=== PATIENT | female | born 1985 | race Caucasian/White ===

== ENCOUNTER 2019-09-24 01:23 | Outpatient (CLI) | payer OTHER, SELFPAY ==
--- NOTE | 2019-09-24 11:09 | DI.US_ITS ---
EXAM: US SOFT TISS ABD WALL/LOW BACK CLINICAL HISTORY: SUBCUTANEOUS MASS OF BACK, R22.2, LT UPPER BACK/BASE OF NECK IN TRAPEZIUS TECHNIQUE: Ultrasound performed using standard protocol. COMPARISON: OB US 2-3 TRIMESTER TRANSABD*P from 09/21/2017 FINDINGS: Ultrasound examination was performed to evaluate question of palpable mass of the superior thoracic/l ower cervical region to the left of midline. Ultrasound shows a 31 x 34 x 5 millimeter in diameter i soechoic to hypoechoic mass which is homogeneous in appearance and avascular. The findings are sugge stive of lipoma although other etiologies are not excluded. IMPRESSION: Probable lipoma as described above. If there is continued growth additional evaluation with CT or MR could be obtained to confirm this diagnosis.
== END 2019-09-24 01:43 ==
PROVIDERS: PCP Nurse Practitioner Family; Visit Provider Nurse Practitioner Family
DX: R22.2 Localized swelling, mass and lump, trunk (principal); D17.39 Benign lipomatous neoplasm of skin and subcutaneous tissue of other sites
CPT/HCPCS: 76705

== ENCOUNTER 2021-03-18 14:08 | Outpatient (REF) | payer OTHER, SELFPAY ==
--- NOTE | 2021-03-18 13:40 | PAPFT_PTH ---
PATIENT: Larisa Rodríguez LOC: [facility] U#:[id number] AGE/SX: 36/F ROOM: RE03/18/[address]: RAJWINDER Veloz : 1985 BED: DIS: 03/18/2021 SPEC #: [id number] RECD: 03/18/21 17:55 STATUS: KHRIS REEmery #: [id number] MELCHOR: 03/18/21 13:[address]: Carolynn Butler DEPT: [facility] Cytology RECD BY: Emily Jj ENTERED: 03/18/21 17:55 SP TYPE: PAPFT OTHR DR: Kevin Robertson Tissues: 1 - CX/ENDOCX FOR PAP SMEARS Procedures: PAP THIN PREP/UVM Screening HPV DNA PROBE Comments: [id number]
== END 2021-03-18 14:09 | disposition home or self-care (01) ==
LOC: LBN 14:08
PROVIDERS: PCP Nurse Practitioner Family; Visit Provider Nurse Practitioner Family
DX: Z12.4 Encounter for screening for malignant neoplasm of cervix (principal); Z11.51 Encounter for screening for human papillomavirus (HPV)
CPT/HCPCS: 88142; 87624

== ENCOUNTER 2021-04-15 18:51 | Outpatient (REF) | payer OTHER, SELFPAY ==
[2021-04-15 19:15] LABS: Anion Gap 7.8 mmol/L (3-11); BUN 17 mg/dL (7-18); CO2 28.2 mmol/L (21.0-32.0); CREATININE 0.9 mg/dL (0.55-1.02); Calculated LDL 181 mg/dL (<100); Chloride 105 mmol/L (98-107); Cholesterol 246 mg/dL (<200); Glucose 106 mg/dL (74-106); HDL Cholesterol 45 mg/dL (40-60); Potassium 4.6 mmol/L (3.5-5.1); Sodium 141 mmol/L (136-145); Triglyceride 104 mg/dL (<150)
== END 2021-04-15 18:52 | disposition home or self-care (01) ==
LOC: NCHCN 18:51
PROVIDERS: PCP Nurse Practitioner Family; Visit Provider Physician Assistant
DX: Z00.00 Encounter for general adult medical examination without abnormal findings (principal)
CPT/HCPCS: 80048; 80061

== ENCOUNTER 2021-07-07 03:03 | Outpatient (CLI) | payer OTHER, SELFPAY ==
--- NOTE | 2021-07-07 09:10 | DI.RAD_ITS ---
Exam(s) RF BARIUM SWALLOW EXAM: RF BARIUM SWALLOW CLINICAL HISTORY: GLOBUS HYSTERICUS, F45.8 TECHNIQUE: 2D and realtime digital imaging was performed. CONTRAST MATERIAL: Oral barium Oral water soluble contrast was administered. COMPARISON: No exams were available for comparison FINDINGS: Esophagram was performed both standing and recumbent BRIDGES, using single and air contrast technique. The swallowing mechanism appears grossly intact. No evidence of penetration or aspiration. No evidenc e of hypertense upper esophageal sphincter. No evidence of Zenker's diverticulum. There are no fixed lesions in the esophagus. No hiatal hernia. No diverticuli. No Schatzki ring. GE junction appears unr emarkable and no reflux demonstrated. IMPRESSION: No significant findings on this esophagram study. RADIATION DOSE DELIVERED: lamine Hatch=46.5 mGy
[2021-07-07] MEDS: Barium Sulfate 60% W/V 355 ML BTL PO (10:10)
== END 2021-07-07 03:23 ==
PROVIDERS: PCP Nurse Practitioner Family; Visit Provider Physician Assistant
DX: F45.8 Other somatoform disorders (principal)
CPT/HCPCS: 74221; J3490

== ENCOUNTER 2021-11-01 18:51 | Outpatient (REF) | payer OTHER, SELFPAY ==
[2021-11-01 16:43] LABS: Calculated LDL 178 mg/dL (<100); Cholesterol 247 mg/dL (<200); HDL Cholesterol 58 mg/dL (40-60); TSH 1.76 uIU/mL (0.36-3.74); Triglyceride 55 mg/dL (<150)
== END 2021-11-01 18:52 | disposition home or self-care (01) ==
LOC: NCHCN 18:51
PROVIDERS: PCP Physician Assistant; Visit Provider Physician Assistant
DX: E78.5 Hyperlipidemia, unspecified (principal); R13.10 Dysphagia, unspecified
CPT/HCPCS: 80061; 84439; 84443

== ENCOUNTER 2022-06-09 17:30 | Emergency (ER) | payer OTHER, SELFPAY ==
[2022-06-09] VITALS (48 sets, daily range): BP systolic 106–178; BP diastolic 71–114; PULSE 73–94; RESP 10–28; TEMP 36.7; O2SAT 94–98
--- NOTE | 2022-06-09 17:30 | RT.EKG_ITS ---
APPROVED REPORT Exam: Resting ECG Reason for Exam: CHEST PAIN Patient Location: E HR:73 bpm ECG Measurements Heart Rate 73 AXIS WA 157 P 49 QRSd 77 QRS 14 QT 383 T 41 QTc 422 Conclusion Sinus rhythm...normal P axis, V-rate 60- 99. Sinus. Normal axis. No STEMI. I have reviewed and interpreted ECG and agree with software generated interpretation.
--- NOTE | 2022-06-09 18:15 | DI.RAD_ITS ---
Exam(s) XR CHEST 2V PA LATERAL EXAM: XR CHEST 2V PA LATERAL CLINICAL HISTORY: chest pain, r/o acute disease. TECHNIQUE: 2D digital imaging was performed. COMPARISON: CR,RF RF BARIUM SWALLOW from 07/07/2021 FINDINGS: 2 views: Heart size is normal. The mediastinum is not widened. Lungs are clear. No infiltrates nor pleural effusions. IMPRESSION: No acute pulmonary findings. DATA REPOSITORY: RADIATION DOSE DELIVERED:
--- NOTE | 2022-06-09 18:29 | ED.GENADUL_ITS ---
Discharge Plan Disposition Patient Disposition: HOME Condition: Improving Discharge Details Clinical Impression: Chest pain Primary Care Provider: Lorne Quezada ED Provider: Maranda Beasley Home Meds and New Rx's Prescriptions: No Action No Known Home Meds Discharge Instructions Additional Instructions: Your blood tests, EKG and imaging today are reassuring and show no evidence of acute concerning or significant findings. Drink plenty of fluids and get plenty of rest. Call your primary care doctor's office tomorrow to schedule a follow-up appointment for reevaluation and for outpatient die cutting machine operator and echocardiogram if your symptoms persist or worsen. Return immediately to the emergency department if you develop any worsening or new concerning symptoms. Discharge Data Discharge Date/Time-TO BE ENTERED AT DEPARTURE: 06/09/22 20:10 Discharge Physician: Maranda eBasley Medical Decision Making 37-year-old female with history of migraine and anxiety presents with a 50- minute episode of chest pain that occurred while driving prior to arrival. EKG on arrival notes a rate of 73, sinus, normal axis, no STEMI and nondiagnostic. Her blood pressure was significantly elevated on arrival at 178/114. Shortly after placed in an ED room her blood pressure was significantly improved to 137/92. Patient appears slightly anxious but nontoxic. She is afebrile with normal heart rate, respiratory rate and oxygen saturation. She is asymptomatic upon my assessment. Differential diagnosis includes muscle strain, GERD, costochondritis, anxiety. Less likely PE. History and presentation does not appear consistent with ACS or dissection. Will place an IV, bolus IV fluids, screening labs, chest x-ray and reassess. Patient is declining any medication for symptoms at this time. Urine test negative. Labs and imaging reviewed. Hemoglobin and bicarb is minimally elevated above high end of normal. Labs unremarkable. TSH within normal limits. Troponin negative. D-dimer negative. Chest x-ray negative. Patient reassessed and she remains asymptomatic and would like to go home. Discussed with patient that we would recommend a repeat troponin and EKG for further evaluation to rule out ACS but she is declining to stay for these tests. The risks of or disability due to missed or delayed diagnoses explained and patient understands. She demonstrates capacity to make decisions. She is advised to increase fluids, rest and follow-up with her primary care doctor for reevaluation and for referral for outpatient die cutting machine operator and/or echocardiogram. Offered to order a die cutting machine operator here but she states she will discuss this with her primary care doctor. Usual and customary return precautions given prior to discharge. Medical Records Medical records reviewed: Yes I reviewed the patient's medical records. Imaging Data Radiologic Study: Radiologist's impression: XR Chest Exam date and time: 06/09/2022 6:50 PM Age: 37 years old Clinical indication: Pain; Chest pressure; Additional info: Chest pain TECHNIQUE: Imaging protocol: Radiologic exam of the chest. Views: 2 views. COMPARISON: RF BARIUM SWALLOW 07/07/2021 8:57 AM FINDINGS: Lungs: Unremarkable. No consolidation. Pleural spaces: Unremarkable. No pleural effusion. No pneumothorax. Heart/Mediastinum: Unremarkable. No cardiomegaly. Bones/joints:? Mild focal kyphosis at the thoracolumbar junction without vertebral compression deformity IMPRESSION: No acute findings. Lab Data Lab results reviewed: Yes I reviewed the patient's lab results. Labs: Laboratory Tests Range/Units 06/09/22 06/09/22 06/09/22 18:25 18:25 18:25 WBC (4.4-10.8) 10^3/uL 6.78 RBC (3.93-5.22) 10^6/uL 5.30 H Hgb (11.2-15.7) g/dL 15.8 H Hct (36.0-46.0) % 47.2 H MCV (80-95) fL 89 MCH (27.0-33.0) pg 29.8 MCHC (32.0-36.0) % 33.5 RDW (11.7-14.6) % 11.5 L Plt Count (130-400) 10^3/uL 281 MPV (8.0-11.0) fL 9.2 Immature Gran % 0.3 Neutrophils % 54.3 Lymphocytes % 32.9 Monocytes % 8.3 Eosinophils % 3.2 Basophils % 1.0 Nucleated RBC % (0.0-0.3) % 0.0 Absolute Neutrophils (1.2-6.7) 10^3/uL 3.68 Absolute Lymphocytes (1.2-3.4) 10^3/uL 2.23 Absolute Monocytes (0.1-0.8) 10^3/uL 0.56 Absolute Eosinophils (0.0-0.7) 10^3/uL 0.22 Absolute Basophils (0.0-0.2) 10^3/uL 0.07 D-Dimer (<500) ng/mlFEU 496 Sodium (136-145) mmol/L 139 Potassium (3.5-5.1) mmol/L 3.8 Chloride (98-107) mmol/L 101 Carbon Dioxide (21.0-32.0) mmol/L 32.6 H Anion Gap (3-11) mmol/L 5.4 BUN (7-18) mg/dL 16 Creatinine (0.55-1.02) mg/dL 0.8 Est GFR (CKD-EPI 2020) (mL/min/1.73m2) 97.26 Glucose (74-106) mg/dL 98 Calcium (8.5-10.1) mg/dL 9.5 Magnesium (1.8-2.4) mg/dL 2.0 Total Bilirubin (0.2-1.0) mg/dL 0.6 AST (15-37) U/L 19 ALT (14-59) U/L 29 Alkaline Phosphatase (46-116) U/L 56 Troponin I (<or=60) ng/L < 50 Total Protein (6.4-8.2) g/dL 8.2 Albumin (3.4-5.0) g/dL 4.1 TSH (0.36-3.74) uIU/mL 2.89 Range/Units 06/09/22 21:17 WBC (4.4-10.8) 10^3/uL RBC (3.93-5.22) 10^6/uL Hgb (11.2-15.7) g/dL Hct (36.0-46.0) % MCV (80-95) fL MCH (27.0-33.0) pg MCHC (32.0-36.0) % RDW (11.7-14.6) % Plt Count (130-400) 10^3/uL MPV (8.0-11.0) fL Immature Gran % Neutrophils % Lymphocytes % Monocytes % Eosinophils % Basophils % Nucleated RBC % (0.0-0.3) % Absolute Neutrophils (1.2-6.7) 10^3/uL Absolute Lymphocytes (1.2-3.4) 10^3/uL Absolute Monocytes (0.1-0.8) 10^3/uL Absolute Eosinophils (0.0-0.7) 10^3/uL Absolute Basophils (0.0-0.2) 10^3/uL D-Dimer (<500) ng/mlFEU Sodium (136-145) mmol/L Potassium (3.5-5.1) mmol/L Chloride (98-107) mmol/L Carbon Dioxide (21.0-32.0) mmol/L Anion Gap (3-11) mmol/L BUN (7-18) mg/dL Creatinine (0.55-1.02) mg/dL Est GFR (CKD-EPI 2020) (mL/min/1.73m2) Glucose (74-106) mg/dL Calcium (8.5-10.1) mg/dL Magnesium (1.8-2.4) mg/dL Total Bilirubin (0.2-1.0) mg/dL AST (15-37) U/L ALT (14-59) U/L Alkaline Phosphatase (46-116) U/L Troponin I (<or=60) ng/L Cancelled Total Protein (6.4-8.2) g/dL Albumin (3.4-5.0) g/dL TSH (0.36-3.74) uIU/mL ECG Data Attestation: I personally reviewed and interpreted this ECG (s) as follows: Interpretation: rate of 73, sinus, normal axis, no stemi. HPI General Mode of arrival: ambulatory . Date/Time Provider Initiated Documentation: 06/09/22 17:31 . Limitations to Documentation: no limitations . Information obtained by: patient . HPI Narrative: Patient is a 37-year-old female with a history of migraine and anxiety who presents for for a 50-minute episode of chest pain that occurred while she was driving today. Patient states she noted the chest pain on the left side of her chest under her left breast which then radiated up to both sides of her neck to behind her ears. She states this lasted approximately 15 minutes and then resolved. She states she felt dizziness in the form of blurry vision and shortness of breath during this episode but then all the symptoms resolved. She states she felt some chest pain on arrival to the ED but denies any symptoms at present. 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 She states she has not been sleeping well the past 6 months stating that she has been waking up frequently throughout the night. She denies any fever, recent illness, sore throat, abdominal pain, vomiting, diarrhea, urinary symptoms, new medications, alcohol or drug use, caffeine use, or known stressors. Patient also states that for the past 2 months she has been experiencing episodes that occur 1-2 times weekly in which she feels that her heart skips a beat . She states she feels a sudden feeling in her chest and throat that occurs at random. She states it is not related to exercise, time of day or any aggravating or alleviating factors. Related Data Home Medications Medication Instructions Recorded Confirmed Unknown [No Known Home Meds] 03/18/21 10/13/21 Allergies Allergy/AdvReac Type Severity Reaction Status Date / Time No Known Allergies Allergy Verified 10/13/21 09:26 General Stated Complaint: Chest Pain LAVELLE: 3 Review of Systems All systems reviewed & are unremarkable except as noted in HPI and below Constitutional Constitutional: Reports as per HPI, Denies chills and Denies fever(s) Eyes Eyes: Denies blurry vision ENT Ears, Nose, Mouth, and Throat: Reports dizziness, Denies sore throat and Denies throat swelling Cardiovascular Cardiovascular: Reports chest pain and Denies dyspnea Respiratory Respiratory: Denies cough and Denies dyspnea Gastrointestinal Gastrointestinal: Denies abdominal pain, Denies diarrhea and Denies vomiting Genitourinary Genitourinary: Denies hematuria and Denies dysuria Musculoskeletal Musculoskeletal: Denies back pain and Denies numbness Integumentary/Breasts Skin/Breast: Denies lesions and Denies rash Neurologic Neurologic: Reports dizziness, Denies localized weakness and Denies numbness Allergic/Immunologic Allergic/Immunologic: Denies throat swelling [facility] All Active Problems (Updated 06/09/22 @ 19:46 by Maranda Beasley DO) Chest pain (Acute) Medical History Anxiety Dysphagia Encounter for counseling regarding contraception Globus hystericus Hyperlipidemia Lipoma Migraine Myopia Preventative health care Rash Surgical History section (02/07/18) LTCS. F. Arrest of dilation. Family History (Reviewed 10/13/21 @ 15: by Rohan Clayton MD) Grandmother Essential hypertension Hyperlipidemia Father Diabetes Alzheimer's dementia Mother Atrial fibrillation Depression Rheumatoid arthritis Other Cancer Heart disease Social History (Reviewed 10/13/21 @ 15: by Rohan Clayton MD) Smoking/Tobacco Use Status: Never Smoking risk assessment performed?: Yes Alcohol Intake: current Alcohol Intake frequency: a few times a month Drug use: Never Household members: spouse Number of Children: 1 current occupation: nurse practitioner Pets and animals: Yes Pets and animals: cat(s) and dog(s) What is your relationship status?: Panel score (0-1 are the most socially isolated patients): 1 Do you feel safe at home: Yes Do you feel safe in your relationship?: Yes Exam Const General: cooperative, no acute distress and anxious Orientation: alert, awake and oriented x3 HENMT Head: normal to inspection Face and sinus: normal facial exam Eyes General: appearance normal, both eyes and all related structures Pupils: PERRL EOM: EOM intact bilaterally Neck Neck: normal visual inspection and No submandibular swelling Lymphatic: no lymphadenopathy noted Chest Chest: normal inspection of the chest and no tenderness Resp Effort & Inspection: normal respiratory effort and able to speak in complete sentences Auscultation: clear to auscultation bilaterally Cardio Rate: regular rate Rhythm: regular rhythm GI Inspection: normal to inspection Palpation: soft, not firm, not rigid and nontender Auscultation: hypoactive bowel sounds Back/Spine/Pelvis Thoracic/Lumbar Spine: thoracic and lumbar spine normal to inspection Pelvis: no pain with anterior-posterior compression Skin General skin exam: no rashes or lesions noted Neuro General: patient alert, patient awake, patient oriented x3, gait normal, moves all extremities and no meningeal signs Cranial Nerves: CN's II-XI intact bilaterally Cognition: normal cognition Speech: speech normal Motor: muscle tone normal throughout and strength 5/5 throughout Sensory Exam: no sensory deficits noted Extrem General: normal to inspection, full ROM, capillary refill normal, no calf tenderness bilaterally and no edema Psych Appearance: grossly normal Mental Status: mental status grossly normal Speech and Movement: speech and movement normal Affect: normal affect Course Vital Signs Vital signs: Vital Signs Temperature 98.1 F 06/09/22 17:33 Pulse 94 H 06/09/22 17:33 Respiratory Rate 18 06/09/22 17:33 Blood Pressure 178/114 H 06/09/22 17:33 Pulse Oximetry 97 06/09/22 17:33 Temperature 98.1 F 06/09/22 17:33 Temperature Source Tympanic 06/09/22 17:33 Pulse 94 H 06/09/22 17:33 Respiratory Rate 18 06/09/22 17:33 Respiratory Effort 06/09/22 17:39 Respiratory Depth Normal 06/09/22 17:39 Respiratory Pattern Normal 06/09/22 17:39 Blood Pressure 178/114 H 06/09/22 17:33 Blood Pressure Position Supine 06/09/22 17:33 Pulse Oximetry 97 06/09/22 17:33 Oxygen Delivery Method Room Air 06/09/22 17:33 Oxygen Flow Rate 0 06/09/22 17:33 Pain Level 0 06/09/22 17:33
[2022-06-09 18:36] LABS: Abs Immature Grans 0.02 10^3/uL (0.0-0.06); Absolute Basophil Count 0.07 10^3/uL (0.0-0.2); Absolute Eosinophil Count 0.22 10^3/uL (0.0-0.7); Absolute Lymphocyte Count 2.23 10^3/uL (1.2-3.4); Absolute Monocyte Count 0.56 10^3/uL (0.1-0.8); Absolute Neutrophil Count 3.68 10^3/uL (1.2-6.7); Eosinophils % 3.2; HCT 47.2 % (36.0-46.0); HGB 15.8 g/dL (11.2-15.7); Immature Grans % 0.3; Lymphocytes % 32.9; MCH 29.8 pg (27.0-33.0); MCHC 33.5 % (32.0-36.0); MCV 89 fL (80-95); MPV 9.2 fL (8.0-11.0); Monocytes % 8.3; Neutrophils % 54.3; Platelet Count 281 10^3/uL (130-400); RDW 11.5 % (11.7-14.6); RDW-SD 37.6 fL; WBC 6.78 10^3/uL (4.4-10.8)
[2022-06-09] MEDS: Normal Saline 1,000 ML 1000 ML IV (18:43)
--- NOTE | 2022-06-09 19:06 | DI.VRAD_ITS ---
PROCEDURE INFORMATION: Exam: XR Chest Exam date and time: 06/09/2022 6:50 PM Age: 37 years old Clinical indication: Pain; Chest pressure; Additional info: Chest pain TECHNIQUE: Imaging protocol: Radiologic exam of the chest. Views: 2 views. COMPARISON: RF BARIUM SWALLOW 07/07/2021 8:57 AM FINDINGS: Lungs: Unremarkable. No consolidation. Pleural spaces: Unremarkable. No pleural effusion. No pneumothorax. Heart/Mediastinum: Unremarkable. No cardiomegaly. Bones/joints: Mild focal kyphosis at the thoracolumbar junction without vertebral compression deformity IMPRESSION: No acute findings. Dictated and Authenticated by: Zoila Koch MD. Ordering:PRICILA Low MD
[2022-06-09 19:09] LABS: D-Dimer 496 ng/mlFEU (<500)
[2022-06-09 19:21] LABS: ALT 29 U/L (14-59); AST 19 U/L (15-37); Albumin 4.1 g/dL (3.4-5.0); Alkaline Phosphatase 56 U/L (46-116); Anion Gap 5.4 mmol/L (3-11); BUN 16 mg/dL (7-18); Bilirubin, Total 0.6 mg/dL (0.2-1.0); CO2 32.6 mmol/L (21.0-32.0); CREATININE 0.8 mg/dL (0.55-1.02); Calcium 9.5 mg/dL (8.5-10.1); Chloride 101 mmol/L (98-107); Estimated GFR 97.26 (mL/min/1.73m2); Glucose 98 mg/dL (74-106); Potassium 3.8 mmol/L (3.5-5.1); Sodium 139 mmol/L (136-145); TSH (W/Ref FT4) 2.89 uIU/mL (0.36-3.74); Total Protein 8.2 g/dL (6.4-8.2); Troponin I < 50 ng/L (<or=60)
== END 2022-06-09 20:10 | disposition home or self-care (01) ==
PROVIDERS: Emergency Provider Physician Assistant; PCP Physician Assistant
DX: R07.9 Chest pain, unspecified (principal); R03.0 Elevated blood-pressure reading, without diagnosis of hypertension; D58.2 Other hemoglobinopathies; E87.8 Other disorders of electrolyte and fluid balance, not elsewhere classified
CPT/HCPCS: 80053; 81025; 93005; 96360; 99284; 71046; 83735; 84443; 84484; 85025; 85379; 93010

== ENCOUNTER 2022-08-29 11:27 | Outpatient (CLI) | payer OTHER, SELFPAY | END 2022-08-29 11:28 | disposition home or self-care (01) | LOC: CARDOPNVT 11:27 | PROVIDERS: PCP Physician Assistant; Visit Provider Physician Assistant | DX: R00.2 Palpitations (principal) | CPT/HCPCS: 93270 ==

== ENCOUNTER 2022-10-03 11:34 | Outpatient (CLI) | payer OTHER, SELFPAY ==
--- NOTE | 2022-10-03 11:45 | W.CARDEVENT ---
Date of service: 10/03/22 Time of Service: 11:45 Cardiac Event Recorder Referring Provider:: Lorne Quezada Indications:: Palpitations Cardiac Event Note: This is a 30-day event monitor ordered for palpitations Rhythm throughout was sinus. Average heart rate was 80. Minimum was 58. Maximum heart rate was 175, sinus tachycardia There were no significant atrial or ventricular dysrhythmias. Specifically there was no atrial fibrillation, no SVT, no high-grade AV block, no pauses greater than 3 seconds
== END 2022-10-03 11:35 | disposition home or self-care (01) ==
LOC: CARDOPNVT 11:34
PROVIDERS: PCP Physician Assistant; Visit Provider Internal Medicine Cardiovascular Disease
DX: R00.2 Palpitations (principal)

== ENCOUNTER 2023-02-13 15:07 | Outpatient (REF) | payer OTHER, SELFPAY ==
[2023-02-13 16:50] LABS: Calculated LDL 168 mg/dL (<100); Cholesterol 242 mg/dL (<200); HDL Cholesterol 54 mg/dL (40-60); Triglyceride 104 mg/dL (<150)
== END 2023-02-13 15:08 | disposition home or self-care (01) ==
LOC: NCHCN 15:07
PROVIDERS: PCP Physician Assistant; Visit Provider Physician Assistant
DX: E78.5 Hyperlipidemia, unspecified (principal)
CPT/HCPCS: 80061

== ENCOUNTER 2024-04-10 08:29 | Outpatient (REF) | payer OTHER, SELFPAY ==
[2024-04-10 16:48] LABS: Hemoglobin A1C 5.5 % (<5.7)
[2024-04-10 17:37] LABS: FREE T4 0.95 ng/dL (0.76-1.46); TSH 2.15 uIU/Ml (0.36-3.74)
[2024-04-10 19:10] LABS: Calculated LDL 206 mg/dL (<100); Cholesterol 279 mg/dL (<200); HDL Cholesterol 48 mg/dL (40-60); Triglyceride 127 mg/dL (<150)
== END 2024-04-10 08:30 | disposition home or self-care (01) ==
LOC: NCHCN 08:29
PROVIDERS: PCP Physician Assistant; Visit Provider Physician Assistant
DX: E78.5 Hyperlipidemia, unspecified (principal); R53.83 Other fatigue; Z13.1 Encounter for screening for diabetes mellitus
CPT/HCPCS: 80061; 83036; 84439; 84443

== ENCOUNTER 2025-02-28 14:55 | Outpatient (REF) | payer OTHER, SELFPAY ==
[2025-02-28 16:43] LABS: Calculated LDL 185 mg/dL (<100); Cholesterol 249 mg/dL (<200); HDL Cholesterol 51 mg/dL (>or=50); Triglyceride 68 mg/dL (<150)
== END 2025-02-28 14:56 | disposition home or self-care (01) ==
LOC: NCHCN 14:55
PROVIDERS: PCP Physician Assistant; Visit Provider Physician Assistant
DX: E78.5 Hyperlipidemia, unspecified (principal)
CPT/HCPCS: 80061

== ENCOUNTER 2025-03-13 17:27 | Outpatient (REF) | payer OTHER, SELFPAY ==
--- NOTE | 2025-03-13 16:30 | PAPFT_PTH ---
PATIENT: Larisa Rodríguez LOC: [facility] U#:[id number] AGE/SX: 40/F ROOM: RE03/13/[address]: Eunice Hui MD : 1985 BED: DIS: 03/13/2025 SPEC #: [id number] RECD: 03/13/25 17:36 STATUS: KHRIS REQ #: [id number] MELCHOR: 03/13/25 16:[address]: Eunice Hui DEPT: [facility] Cytology RECD BY: Emily Jj ENTERED: 03/13/25 17:36 SP TYPE: PAPFT OTHR DR: Lorne Quezada Tissues: 1 - CX/ENDOCX FOR PAP SMEARS Procedures: PAP THIN PREP/UVM Screening HPV DNA PROBE Comments: [id number] (HPV 16 & 18/45)
== END 2025-03-13 17:28 | disposition home or self-care (01) ==
LOC: LBN 17:27
PROVIDERS: PCP Physician Assistant; Visit Provider Obstetrics & Gynecology
DX: Z12.4 Encounter for screening for malignant neoplasm of cervix (principal); Z11.51 Encounter for screening for human papillomavirus (HPV)
CPT/HCPCS: 88142; 87624

== ENCOUNTER 2025-04-01 01:51 | Outpatient (CLI) | payer OTHER, SELFPAY ==
--- NOTE | 2025-04-01 | DI.MAMMO_ITS ---
Exam(s) MAMMO SCREENING EXAM: MAMMO SCREENING CLINICAL HISTORY: Screening Z12.31 TECHNIQUE: Bilateral full field digital CC and MLO mammographic images were obtained with 3D tomosynthesis and utilizing computer aided detection (CAD). COMPARISON: None. Patient had outside exams in [facility] which are not available for comparison. FINDINGS: Masses/Architectural Distortion: None seen. Microcalcifications: No suspicious pleomorphic-type are seen. Skin Thickening/Nipple Retraction: None. IMPRESSION: 1. No significant interval change with no specific features of malignancy noted. 2. Unless there is more urgent need, screening mammography is recommended, as per [place] [employer] guidelines. BI-RADS Category 1 - Negative Breast Density - Category C - The breast are heterogeneously dense, which may obscure small masses. Breast density category C or D implies that the patient has dense breast tissue. Dense breast tissue is very common and is not abnormal but dense breast tissue can make it harder to find cancer on a mammogram. Also, dense breast tissue may increase their breast cancer risk. This information about the result of the mammogram report was provided to the patient to raise their awareness. Use this report when you speak with the patient about their risks for breast cancer, which includes their family history. At that time, you may recommend for more screening tests (Ultrasound or MRI) as they might be useful based on their risk. A negative radiographic report should not delay biopsy if a dominant or clinically suspicious mass is present. Up to ten percent of cancers are not identified on mammography. A negative report may reinforce clinical impression. Adenosis and dense breasts may obscure an underlying neoplasm. False positive reports average 6 to 10%. Patient will receive a letter notifying them of these results.
== END 2025-04-01 02:11 ==
LOC: DI 01:51
PROVIDERS: PCP Physician Assistant; Visit Provider Physician Assistant
DX: Z12.31 Encounter for screening mammogram for malignant neoplasm of breast (principal); R92.333 Mammographic heterogeneous density, bilateral breasts
CPT/HCPCS: 77063; 77067